=== PATIENT | female | born 1975 | race Caucasian/White ===

== ENCOUNTER 2016-08-25 03:49 | Emergency (ER) | payer BC, OTHER ==
[~2016-08-25] VITALS: Ht 170.2 cm; Wt 93.9 kg
[~2016-08-25 03:49] MED LIST: ESCI10TA17 PO; IBUP-1277 PO; LINA1CAP; PROM25TA9 PO; SUMA100T16 PO; SUMA6KIT
[2016-08-25 03:53] VITALS: TEMP 36.6; Ht 170.2 cm; Wt 93.9 kg
[2016-08-25] MEDS ORDERED: HYDROmorphone INJ 1 MG/ML SYR IV STA ×2 (04:01→04:28)
[2016-08-25] MEDS ORDERED: ONDANSETRON INJ 2 MG/ML 2 ML VIAL IV STA (04:01)
[2016-08-25] MEDS ORDERED: SODIUM CHLORIDE 0.9% 1000ML 1,000 ML IV ONE (04:15)
[2016-08-25 04:18] LABS: BASO % 0.2 %; BASO ABS # 0.02 K/uL (0-0.2); COMPLETE YES; EOS % 3.3 %; HEMATOCRIT 39.9 % (37-47); IG% 0.2 %; LYMPH % 35.8 %; LYMPH ABS # 3.38 K/uL (1.2-3.4); MEAN CELL VOLUME 89.7 fL (80-100); MEAN CORPUSCULAR HEMOGLOBIN 30.6 pg (25-34); MEAN CORPUSCULAR HGB CONC 34.1 g/dl (32-36); MEAN PLATELET VOLUME 9.5 fL (7.4-10.4); MONO % 7.1 %; NEUT % 53.4 %; PLATELET COUNT 265 K/uL (130-400); RED BLOOD COUNT 4.45 M/uL (4.2-5.4); WHITE BLOOD COUNT 9.45 K/uL (4.8-10.8)
[2016-08-25 04:38] LABS: BUN/CREATININE RATIO 23.4 (10-20); CALCIUM 9.2 mg/dl (8.5-10.1); CREATININE 0.86 mg/dl (0.60-1.20); POTASSIUM 4.1 mmol/L (3.5-5.1)
[2016-08-25 04:40] LABS: ALB/GLOB RATIO 1.1 (0.9-2)
[2016-08-25] MEDS ORDERED: OXYC1TAB3 PO (05:39)
[2016-08-25] MEDS ORDERED: TAMS0.4C38 PO (05:39)
[2016-08-25] MEDS ORDERED: ONDA4TAB10 SL (05:39)
[2016-08-25] MEDS ORDERED: ONDANSETRON HOME PACK 4MG OD TAB PO ONE (05:45)
[2016-08-25] MEDS ORDERED: OXYCODONE IR HOME PACK PO ONE (05:45)
[2016-08-25 05:54] VITALS: BP 127/65; PULSE 82; O2SAT 97
--- NOTE | 2016-08-25 06:35 | EMERGENCY ROOM VISIT NOTE ---
History First contact with patient: 03:57 Chief Complaint: FLANK PAIN Stated Complaint: RIGHT SIDE PAIN History of Present Illness The patient is a 40 year old female who presents to the Emergency Room with complaints of acute onset right-sided flank pain that began worsening about one hour ago. The patient has had the feeling like she needs use the bathroom all day, but now is having significant pain. Pain does radiate from her right- sided back to her right-sided groin. She rates her discomfort a 6/10 at rest and 10/10 at the worst. She does have a history of kidney stones, and states this feels similar to those episodes. She has not taken anything over-the- counter for her symptoms. He does not have chest pain, chest tightness, shortness of breath, or belly pain. Review of Systems More than 10 systems were reviewed and otherwise negative with the exception of history of present illness. Past Medical/Surgical History Medical Problems: (1) Migraine Unspecified W/O Intractable Migraine Family History No pertinent family history Social History Smoking Status: Current Every Day Smoker Housing Status: lives with family Current/Historical Medications Scheduled Escitalopram (Lexapro), 10 MG PO DAILY Linaclotide (Linzess), DAILY Ondasetron Odt (Zofran Odt), 4 MG SL Q6H Oxycodone Immediate Rel Tab (Roxicodone Ir), 1-2 TAB PO Q6 Tamsulosin Hcl (Flomax), 0.4 MG PO DAILY Scheduled PRN Ibuprofen (Advil), 400 MG PO Q6H PRN for Pain or Fever Promethazine Hcl (Phenergan), 25 MG PO Q4H PRN for prn Sumatriptan Succinate (Imitrex), 100 MG PO UD PRN for Migraine Sumatriptan Succinate (Imitrex Statdose), for prn Allergies Coded Allergies: No Known Allergies (Verified , ?, 08/25/16) Physical Exam Vital Signs Date Time Temp Pulse Resp B/P Pulse Ox O2 Delivery O2 Flow Rate FiO2 08/25/16 05:54 82 16 127/65 97 08/25/16 03:53 36.6 70 20 123/63 98 Room Air Pain Rating (0-10): 3.0 Physical Exam VITALS: Vitals are noted on the nurse's note and reviewed by myself. Vital signs stable. GENERAL: Well-developed, well-nourished, white female who appears quite uncomfortable on examination secondary to her stated complaint. She is holding her right flank and rocking on the bed. HEAD: Normocephalic atraumatic. HEART: Regular rate and rhythm without murmurs gallops or rubs. LUNGS: Clear to auscultation bilaterally without wheezes, rales or rhonchi. No retractions or accessory muscle use. ABDOMEN: Positive normal bowel sounds x 4. Soft, nontender, without masses or organomegaly. No guarding or rebound tenderness. MUSCULOSKELETAL: No muscle atrophy, erythema, or edema noted. Full range of motion without joint tenderness in all extremities. Medical Decision & Procedures ER Provider Diagnostic Interpretation: Preliminary Findings Only See Final Report For Complete Findings CT ABDOMEN & PELVIS: Comparison is made to CT dated 10/05/13. Lung bases are clear. Liver, gallbladder, spleen, pancreas, and adrenal glands are unremarkable. There is a 1.5 mm stone at the right UVJ associated with mild right-sided hydroureteronephrosis. The left kidney and collecting system are normal. Urinary bladder is otherwise unremarkable. There is no evidence of bowel obstruction, appendicitis, or diverticulitis. Uterus and adnexa are within normal limits. There are no acute osseous findings. Laboratory Results 08/25/16 04:11 Red Blood Count 4.45, Mean Corpuscular Volume 89.7, Mean Corpuscular Hemoglobin 30.6, Mean Corpuscular Hemoglobin Concent 34.1, Mean Platelet Volume 9.5, Neutrophils (%) (Auto) 53.4, Lymphocytes (%) (Auto) 35.8, Monocytes (%) (Auto) 7.1, Eosinophils (%) (Auto) 3.3, Basophils (%) (Auto) 0.2, Neutrophils # (Auto) 5.05, Lymphocytes # (Auto) 3.38, Monocytes # (Auto) 0.67, Eosinophils # (Auto) 0.31, Basophils # (Auto) 0.02 08/25/16 04:11 Test 08/25/16 04:11 White Blood Count 9.45 K/uL (4.8-10.8) Red Blood Count 4.45 M/uL (4.2-5.4) Hemoglobin 13.6 g/dL (12.0-16.0) Hematocrit 39.9 % (37-47) Mean Corpuscular Volume 89.7 fL (80-100) Mean Corpuscular Hemoglobin 30.6 pg (25-34) Mean Corpuscular Hemoglobin Concent 34.1 g/dl (32-36) Platelet Count 265 K/uL (130-400) Mean Platelet Volume 9.5 fL (7.4-10.4) Neutrophils (%) (Auto) 53.4 % Lymphocytes (%) (Auto) 35.8 % Monocytes (%) (Auto) 7.1 % Eosinophils (%) (Auto) 3.3 % Basophils (%) (Auto) 0.2 % Neutrophils # (Auto) 5.05 K/uL (1.4-6.5) Lymphocytes # (Auto) 3.38 K/uL (1.2-3.4) Monocytes # (Auto) 0.67 K/uL (0.11-0.59) Eosinophils # (Auto) 0.31 K/uL (0-0.5) Basophils # (Auto) 0.02 K/uL (0-0.2) RDW Standard Deviation 46.1 fL (36.4-46.3) RDW Coefficient of Variation 13.9 % (11.5-14.5) Immature Granulocyte % (Auto) 0.2 % Immature Granulocyte # (Auto) 0.02 K/uL (0.00-0.02) Anion Gap 9.0 mmol/L (3-11) Est Creatinine Clear Calc Drug Dose 103.3 ml/min Estimated GFR () 98.6 Estimated GFR (Non- 85.1 BUN/Creatinine Ratio 23.4 (10-20) Calcium Level 9.2 mg/dl (8.5-10.1) Total Bilirubin 0.3 mg/dl (0.2-1) Aspartate Amino Transf (AST/SGOT) 16 U/L (15-37) Alanine Aminotransferase (ALT/SGPT) 21 U/L (12-78) Alkaline Phosphatase 57 U/L (45-117) Total Protein 7.0 gm/dl (6.4-8.2) Albumin 3.6 gm/dl (3.4-5.0) Globulin 3.4 gm/dl (2.5-4.0) Albumin/Globulin Ratio 1.1 (0.9-2) Lipase 205 U/L (73-393) Medications Administered Medications (Trade) Dose Ordered Sig/Sang Route Start Time Stop Time Status Last Admin Dose Admin Hydromorphone HCl 1 mg 1 mg NOW STAT IV 08/25/16 04:01 08/25/16 04:03 DC 08/25/16 04:33 1 MG Sodium Chloride (Nss 1000ml) 1,000 ml @ 999 mls/hr Q1H1M ONCE IV 08/25/16 04:15 08/25/16 05:15 DC 08/25/16 04:33 999 MLS/HR Ondansetron HCl (Zofran Inj) 4 mg NOW STAT IV 08/25/16 04:01 08/25/16 04:03 DC 08/25/16 04:33 4 MG Hydromorphone HCl (Dilaudid Inj) 1 mg NOW STAT IV 08/25/16 04:28 08/25/16 04:29 DC 08/25/16 04:33 1 MG Oxycodone HCl (Roxicodone Immediate Rel 5MG Home Pack) 1 homepack UD ONCE PO 08/25/16 05:45 08/25/16 05:46 DC 08/25/16 05:53 1 HOMEPACK Ondansetron HCl (ZOFRAN ODT 4MG Home Pack) 1 homepack UD ONCE PO 08/25/16 05:45 08/25/16 05:46 DC 08/25/16 05:52 1 HOMEPACK ED Course Physical exam and history were performed. Nursing notes and EMR were reviewed. Patient appears to have acute onset right flank pain. On examination she appears quite uncomfortable. IV access was established and labs were obtained. Patient was hydrated with normal saline and given IV Dilaudid and IV Zofran for her symptoms. CT scan was ordered. The patient's blood work is as above and was reviewed. She does not have significantly elevated white blood cell counts, a significant anemia, or gross electrolyte imbalance. Lipase and transaminases are nondiagnostic. CT scan shows a distal 1.5 mm UVJ stone. Clinically this does correlate with the patient's discomfort. I discussed options of care with the patient, who has followed with Dr. Zavaleta of urology in the past. The patient felt much better after hydration and medication here in the department. She does feel well for discharge home. I will give her a urine strainer, oxycodone, Zofran, and Flomax. The patient was asked to monitor her symptoms invited to return to the ER with any new, worsening, or concerning symptoms. She should be contacting urology today to help arrange appropriate follow-up visit. The patient voiced understanding of care and rated her discomfort a 2/10 at the time of departure. The chart was completed utilizing [employer] Voice Recognition Software. Grammatical errors, random word insertions, pronoun errors, and incomplete sentences are an occasional consequence of this system due to software limitations, ambient noise, and hardware issues. Any formal questions or concerns about the content, text, or information contained within the body of this dictation should be directly addressed to the provider for clarification. . Medical Decision Differential diagnosis: Etiologies such as renal colic, appendicitis, diverticulitis, mesenteric ischemia, aortic pathology, infections, inflammatory bowel disease, PUD, biliary pathology, UTI, as well as others were entertained. Impression Primary Impression: Right ureteral calculus Departure Information Dispostion Home / Self-Care Condition GOOD Prescriptions Ondasetron Odt (ZOFRAN ODT) 4 Mg Tab 4 MG SL Q6H for Nausea, #12 TAB Prov: Liban Tan PA-C 08/25/16 Tamsulosin Hcl (FLOMAX) 0.4 Mg Cap 0.4 MG PO DAILY for 7 Days, #7 CAP Prov: Liban Tan PA-C 08/25/16 Oxycodone Immediate Rel Tab (ROXICODONE IR) 5 Mg Tab 1-2 TAB PO Q6 for Pain, #24 TAB Prov: Liban Tan PA-C 08/25/16 Referrals Angel Zavaleta M.D. Forms HOME CARE DOCUMENTATION FORM, Work Instructions, IMPORTANT VISIT INFORMATION Patient Instructions My [facility] [address] Additional Instructions You were seen and evaluated today on an emergency basis only. This is not a substitute for, or an effort to provide, complete comprehensive medical care. It is not possible to recognize and treat all injuries or illnesses in a single emergency department visit. For this reason it is recommended that you followup with Urology, Dr. Zavaleta's office, by telephone today to arrange a follow-up appointment. For baseline pain relief you may alternate ibuprofen and acetaminophen every 4 hours for pain control. Take 600 mg ibuprofen (Advil) and then 4 hours later take 1000 mg acetaminophen (Tylenol). Do not take more than 3000 mg acetaminophen in a single day. Oxycodone (OxyIR) 5mg: Take ONE pill every SIX hours for breakthrough pain. Avoid alcohol, operating machinery or dangerous equipment, working on ladders or roofs, DRIVING, or situations where being under the influence may be dangerous. It is recommended to use an [id number] stool softener such as Colace, 100mg twice daily while taking this medication to avoid constipation. Take Flomax once daily as prescribed Zofran 1 tablet every 6 hrs as needed for nausea. Strain your urine if possible. Take any fragments with you to urology. You are welcome to return to the emergency department anytime with new, worsening, or concerning symptoms.
--- NOTE | 2016-08-25 07:22 | DIAGNOSTIC IMAGING REPORT ---
CT SCAN OF THE ABDOMEN AND PELVIS WITHOUT CONTRAST CLINICAL HISTORY: Right flank pain COMPARISON STUDY: 10/05/2013 TECHNIQUE: CT scan of the abdomen and pelvis was performed from the lung bases to the proximal femurs. Images are reviewed in the axial, sagittal, and coronal planes. IV contrast was not administered for this examination. CT DOSE: 1451.39 mGy.cm FINDINGS: Lower chest: The heart is normal in size and configuration, without pericardial effusion. The lung bases and pleural spaces are clear. Liver: The unenhanced liver is normal in size, contour, and attenuation. There is no intrahepatic biliary ductal dilatation. Gallbladder: Unremarkable. Spleen: Normal in size and attenuation. Pancreas: Unremarkable. Adrenal glands: Unremarkable. Kidneys: No renal calculi are visualized. There is mild right-sided hydronephrosis. There is a 2 mm calculus at the level of the right ureterovesical junction. Bowel: There are no transition zones indicate bowel obstruction. There is no acute diverticulitis. The appendix appears normal. Peritoneum: There is no intraperitoneal free air or abdominal ascites. There is a tiny fat-containing umbilical hernia. Vasculature: The abdominal aorta is normal in course and caliber. Adenopathy: None. Pelvic viscera: The bladder, and pelvic viscera are unremarkable. Skeletal structures: No destructive osseous lesions are seen. IMPRESSION: 1. 2 mm calculus at the level the right ureterovesical junction with minor secondary obstructive changes 2. No evidence of bowel obstruction. No evidence of free air 3. Normal appendix Electronically signed by: Grady Napoles M.D. 08/25/2016 7:21 AM Dictated Date/Time: 08/25/2016 7:18 AM
== END 2016-08-25 05:55 | disposition home or self-care (01) ==
LOC: C.EDB 03:50 → C.EDA 05:55
DX: N20.1 Calculus of ureter (principal); F17.210 Nicotine dependence, cigarettes, uncomplicated; Z79.899 Other long term (current) drug therapy

== ENCOUNTER → 2016-08-27 | Outpatient (CLI) | payer OTHER ==
[~2016-08-27] MED LIST changes: +ONDA4TAB10 SL; +OXYC1TAB3 PO; +TAMS0.4C38 PO
[2016-08-27 16:44] LABS: URINE APPEARANCE CLEAR (CLEAR); URINE BILIRUBIN NEG (NEG); URINE COLOR YELLOW; URINE NITRITE NEG (NEG); URINE PH 6.5 (4.5-7.5); URINE SPECIFIC GRAVITY 1.008 (1.000-1.030); UROBILINOGEN NEG (NEG)
[2016-08-27 16:49] LABS: MANUAL MICROSCOPIC REQUIRED? NO; REVIEW REQ? NO
== END | disposition home or self-care (01) ==
LOC: C.LABBFT 14:03
PROVIDERS: ATTEND Physician Assistant Medical
DX: R39.9 Unspecified symptoms and signs involving the genitourinary system (principal)